=== PATIENT | male | born 1955 | race Caucasian/White ===

== ENCOUNTER 2016-07-23 15:23 | Emergency (ER) | payer SELFPAY ==
[~2016-07-23 15:23] MED LIST: BP MED; KEFLEX500 M4 PO
[2016-07-23] MEDS ORDERED: CELEXA20 M2 PO (15:56)
[2016-07-23] MEDS ORDERED: TENORMIN50 M1 PO (15:56)
[2016-07-23] MEDS ORDERED: MEDROL4 M2 PO (16:04)
[2016-07-23] MEDS ORDERED: CYCLOBENZAPRINE5 M1 PO (16:04)
[2016-07-23] MEDS ORDERED: DICLOFENAC SODI75 M2 PO (16:04)
== END 2016-07-23 16:31 ==
LOC: EDMED 15:23
DX: S39.012A Strain of muscle, fascia and tendon of lower back, initial encounter (principal); I10 Essential (primary) hypertension; Z90.49 Acquired absence of other specified parts of digestive tract; X50.0XXA Overexertion from strenuous movement or load, initial encounter